=== PATIENT | female | born 1985 | race Caucasian/White ===

== ENCOUNTER → 2017-07-03 | Outpatient (CLI) | payer MEDICAID ==
[~2017-07-03] MED LIST: PREN0.01 PO
== END ==
LOC: HPND 12:55
PROVIDERS: ATTEND Obstetrics & Gynecology
DX: O99.212 Obesity complicating pregnancy, second trimester (principal); O24.410 Gestational diabetes mellitus in pregnancy, diet controlled; E66.01 Morbid (severe) obesity due to excess calories; O10.012 Pre-existing essential hypertension complicating pregnancy, second trimester
CPT/HCPCS: 76811; 76825; 76827; 93325

== ENCOUNTER → 2017-07-30 | Outpatient (CLI) | payer MEDICAID ==
--- NOTE | 2017-07-30 17:04 | EKG ---
Date Performed: 07/30/2017 Time Performed: 15:08:34 PTAGE: 31 years EKG: Sinus rhythm NORMAL ECG NO PREVIOUS TRACING DOCTOR: Mathew Cordero Interpretating Date/Time 07/30/2017 17:03:28
== END ==
LOC: HCAV 15:00
PROVIDERS: ATTEND Obstetrics & Gynecology
DX: O24.919 Unspecified diabetes mellitus in pregnancy, unspecified trimester (principal)
CPT/HCPCS: 93005

== ENCOUNTER → 2017-08-01 | Outpatient (CLI) | payer MEDICAID | LOC: HPND 13:11 | PROVIDERS: ATTEND Obstetrics & Gynecology | DX: O10.012 Pre-existing essential hypertension complicating pregnancy, second trimester (principal); O24.410 Gestational diabetes mellitus in pregnancy, diet controlled; O99.212 Obesity complicating pregnancy, second trimester | CPT/HCPCS: 76816 ==